=== PATIENT | female | born 2005 | race Asian ===

== ENCOUNTER 2024-08-25 10:19 | Outpatient (CLI) | payer BC, SELFPAY ==
--- NOTE | ~2024-08-25 | US_ITS ---
Pelvic ultrasound. Clinical History: Amenorrhea Technique: Realtime transabdominal and transvaginal scanning of the pelvis was performed. Color flow Doppler and Doppler spectral analysis were performed. Findings: The uterus is anteverted, and measures 7.3 x 2.6 x 3.2 cm. The endometrial stripe has a th ickness of 3 mm. No focal mass is identified. The right ovary measures 2.4 x 2.8 x 2.4 cm. No significant right ovarian or adnexal mass is seen. The left ovary measures 1.9 x 2.6 x 1.8 cm. No significant left ovarian or adnexal mass is seen. Vascular flow present in both ovaries on Doppler spectral analysis. There is no evidence of free fluid in the cul de sac. Impression: Unremarkable pelvic ultrasound. Reviewed, dictated and finalized at [facility]. Impression: Unremarkable pelvic ultrasound.
== END 2024-08-25 10:20 | disposition home or self-care (01) ==
LOC: GOSHIMG 10:19
PROVIDERS: PCP Nurse Practitioner Adult Health; Visit Provider Nurse Practitioner Adult Health
DX: N91.2 Amenorrhea, unspecified (principal)
CPT/HCPCS: 76856